=== PATIENT | male | born 1975 | race American Indian/Alaskan Native ===

== ENCOUNTER 2016-09-18 23:01 | Emergency (ER) | payer SELFPAY ==
[2016-09-19 06:10] VITALS: BP 126/94
--- NOTE | 2016-09-19 08:15 | Emergency Department Report ---
ED General Adult HPI - General Chief complaint: Upper Respiratory Infection Stated complaint: CHEST CONGESTION/NECK PAIN Time Seen by Provider: 09/19/16 08:04 Source: patient Mode of arrival: Ambulatory Limitations: No Limitations - History of Present Illness Initial comments: 41-year-old male with hx of HIV presents to the ED with right-sided neck pain with intermittent numbness and tingling to the right arm from hx of herniated disc. Patient also states he is having upper respiratory infection symptoms such as sinus congestion, sinus pressure, cough, sore throat. denies fever, cp, sob, abdominal pain. states taking otc medication with minor relief. - Related Data Previous Rx's Medication Instructions Recorded Last Taken Type ALBUTEROL Inhaler [ProAir HFA 2 puff IH QID PRN #1 inhalation 09/19/16 Unknown Rx Inhaler] Prednisone [predniSONE 5 mg (6-Day 5 mg PO .TAPER #1 tab.ds.pk 09/19/16 Unknown Rx Pack, 21 Tabs)] Sulfamethoxazole/Trimethoprim 1 each PO BID #14 tablet 09/19/16 Unknown Rx [Bactrim DS TAB] methOCARBAMOL [Robaxin TAB] 500 mg PO Q6H PRN #14 tablet 09/19/16 Unknown Rx traMADol [Ultram 50 MG tab] 50 mg PO Q6HR PRN #14 tablet 09/19/16 Unknown Rx Allergies Allergy/AdvReac Type Severity Reaction Status Date / Time ibuprofen [From Motrin] Allergy Hives Verified 09/18/16 23:22 ED Review of Systems ROS: Stated complaint: CHEST CONGESTION/NECK PAIN Other details as noted in HPI Constitutional: denies: chills, fever Eyes: denies: eye pain, eye discharge, vision change ENT: throat pain, congestion. denies: ear pain Respiratory: cough. denies: shortness of breath, wheezing Cardiovascular: denies: chest pain, palpitations Endocrine: no symptoms reported Gastrointestinal: denies: abdominal pain, nausea, diarrhea Genitourinary: denies: urgency, dysuria Musculoskeletal: myalgia. denies: back pain, joint swelling, arthralgia Skin: denies: rash, lesions Neurological: denies: headache, weakness, paresthesias Psychiatric: denies: anxiety, depression Hematological/Lymphatic: denies: easy bleeding, easy bruising ED Past Medical Hx - Past Medical History Previous Medical History?: No - Surgical History Past Surgical History?: No - Social History Smoking Status: Current Every Day Smoker Substance Use Type: Alcohol - Medications Home Medications: Home Medications Medication Instructions Recorded Confirmed Last Taken Type ALBUTEROL Inhaler [ProAir HFA 2 puff IH QID PRN #1 inhalation 09/19/16 Unknown Rx Inhaler] Prednisone [predniSONE 5 mg (6-Day 5 mg PO .TAPER #1 tab.ds.pk 09/19/16 Unknown Rx Pack, 21 Tabs)] Sulfamethoxazole/Trimethoprim 1 each PO BID #14 tablet 09/19/16 Unknown Rx [Bactrim DS TAB] methOCARBAMOL [Robaxin TAB] 500 mg PO Q6H PRN #14 tablet 09/19/16 Unknown Rx traMADol [Ultram 50 MG tab] 50 mg PO Q6HR PRN #14 tablet 09/19/16 Unknown Rx ED Physical Exam - General Limitations: No Limitations General appearance: alert, in no apparent distress - Head Head exam: Present: atraumatic, normocephalic - Eye Eye exam: Present: normal appearance - ENT ENT exam: Present: normal orophraynx, mucous membranes moist, TM's normal bilaterally, normal external ear exam - Neck Neck exam: Present: normal inspection, tenderness (right sided paraspinal tenderness. negative kernig, brudzinski,.) - Respiratory Respiratory exam: Present: normal lung sounds bilaterally. Absent: respiratory distress - Cardiovascular Cardiovascular Exam: Present: regular rate, normal rhythm. Absent: systolic murmur, diastolic murmur, rubs, gallop - GI/Abdominal GI/Abdominal exam: Present: soft, normal bowel sounds - Rectal Rectal exam: Present: deferred - Extremities Exam Extremities exam: Present: normal inspection - Back Exam Back exam: Present: normal inspection - Neurological Exam Neurological exam: Present: alert, oriented X3 - Psychiatric Psychiatric exam: Present: normal affect, normal mood - Skin Skin exam: Present: warm, dry, intact, normal color. Absent: rash ED Course Vital Signs 09/18/16 09/19/16 23:24 06:09 Temperature 98.8 F 98.2 F Pulse Rate 96 H 87 Respiratory 18 18 Rate Blood Pressure 140/99 Blood Pressure 126/94 [Right] O2 Sat by Pulse 99 99 Oximetry ED Medical Decision Making - Medical Decision Making Patient is resting comfortably at this time. Right-sided neck pain is related to his history of herniated disc that he normally gets numbness and tingling with. We'll treat with Bactrim history of HIV and currently not following up with HIV clinic. VSS and NAD at this time. Critical care attestation.: If time is entered above; I have spent that time in minutes in the direct care of this critically ill patient, excluding procedure time. ED Disposition Clinical Impression: Acute URI, Neck pain on right side Disposition: DISCHARGED TO HOME OR SELFCARE Is pt being admited?: No Does the pt Need Aspirin: No Condition: Good Instructions: Upper Respiratory Infection (ED) Additional Instructions: take medication as prescribed. return to ED if fever develops or symptoms worsen. Prescriptions: ALBUTEROL Inhaler [ProAir HFA Inhaler] 2 puff IH QID PRN #1 inhalation PRN Reason: Shortness Of Breath methOCARBAMOL [Robaxin TAB] 500 mg PO Q6H PRN #14 tablet PRN Reason: Pain Prednisone [predniSONE 5 mg (6-Day Pack, 21 Tabs)] 5 mg PO .TAPER #1 tab.ds.pk Sulfamethoxazole/Trimethoprim [Bactrim DS TAB] 1 each PO BID #14 tablet traMADol [Ultram 50 MG tab] 50 mg PO Q6HR PRN #14 tablet PRN Reason: Pain Referrals: PRIMARY CARE,MD [Primary Care Provider] - 3-5 Days Forms: Work/School Release Form(ED) Time of Disposition: 08:14
[2016-09-19] MEDS ORDERED: TYLENOL ONE (08:27)
[2016-09-19] MEDS: TYLENOL PO ONE (08:39)
== END 2016-09-19 08:20 | disposition home or self-care (01) ==
LOC: ED 23:01
DX: J06.9 Acute upper respiratory infection, unspecified (principal); M54.2 Cervicalgia; F17.200 Nicotine dependence, unspecified, uncomplicated; Z88.6 Allergy status to analgesic agent
CPT/HCPCS: 99283

== ENCOUNTER 2017-05-01 02:38 | Inpatient (IN) | payer OTHER ==
[2017-05-01] MEDS ORDERED: MORPHINE IV ONE (03:25)
[2017-05-01] MEDS ORDERED: ZOFRAN IV ONE (03:25)
--- NOTE | 2017-05-01 03:31 | Emergency Department Report ---
HPI - General Chief Complaint: Chest Pain Time Seen by Provider: 05/01/17 03:10 - HPI HPI: Room 26 The patient is a 41-year-old male presented with a chief complaint of chest pain. Patient states for the past 6 hours has had constant diffuse chest pain. Patient describes pain as sharp and burning in nature and associated with shortness of breath. Patient does admit to a pleuritic component. Patient denies nausea/vomiting or diaphoresis. The patient gives his pain is scored 10/ 10. The patient states she's never had a stress test or cardiac catheterization Location: Chest Duration: Hours Quality: Sharp/Burning Severity: 10/10 Modifying factors: [see above] Context: [see above] Mode of transportation: Unknown ED Past Medical Hx - Past Medical History Previous Medical History?: No - Surgical History Past Surgical History?: No - Family History Family history: no significant - Social History Smoking Status: Current Every Day Smoker (1 pack per day) Substance Use Type: Alcohol (moderate), Marijuana - Medications Home Medications: Home Medications Medication Instructions Recorded Confirmed Last Taken Type ALBUTEROL Inhaler [ProAir HFA 2 puff IH QID PRN #1 inhalation 09/19/16 Unknown Rx Inhaler] Prednisone [predniSONE 5 mg (6-Day 5 mg PO .TAPER #1 tab.ds.pk 09/19/16 Unknown Rx Pack, 21 Tabs)] Sulfamethoxazole/Trimethoprim 1 each PO BID #14 tablet 09/19/16 Unknown Rx [Bactrim DS TAB] methOCARBAMOL [Robaxin TAB] 500 mg PO Q6H PRN #14 tablet 09/19/16 Unknown Rx traMADol [Ultram 50 MG tab] 50 mg PO Q6HR PRN #14 tablet 09/19/16 Unknown Rx ED Review of Systems ROS: Stated complaint: CHEST PAIN Other details as noted in HPI Comment: All other systems reviewed and negative Constitutional: denies: chills, diaphoresis, fever Eyes: denies: eye pain, eye discharge, vision change Respiratory: shortness of breath, other (pleurisy) Cardiovascular: chest pain Endocrine: no symptoms reported Gastrointestinal: denies: abdominal pain, nausea, diarrhea Genitourinary: denies: urgency, dysuria Musculoskeletal: denies: back pain, joint swelling, arthralgia Skin: denies: rash, lesions Neurological: denies: headache, weakness, paresthesias Psychiatric: denies: anxiety, depression Hematological/Lymphatic: denies: easy bleeding, easy bruising Physical Exam - Physical Exam Vital Signs: Vital Signs 05/01/17 02:55 Temperature 97.5 F L Pulse Rate 78 Respiratory 16 Rate Blood Pressure 141/101 O2 Sat by Pulse 98 Oximetry Physical Exam: GENERAL: The patient is well-developed well-nourished male lying on a stretcher. In mild discomfort. [] HEENT: Normocephalic. Atraumatic. Extraocular motions are intact. Patient has moist mucous membranes. NECK: Supple. Trachea midline CHEST/LUNGS: Breath sounds equal bilaterally HEART/CARDIOVASCULAR: Regular. There is no tachycardia. There is no gallop rub or murmur. ABDOMEN: Abdomen is soft, nontender. Patient has normal bowel sounds. There is no abdominal distention. SKIN: There is no rash. There is no edema. There is no diaphoresis. NEURO: The patient is awake, alert, and oriented. The patient is cooperative. The patient has normal speech MUSCULOSKELETAL: There is no evidence of acute injury. ED Course Vital Signs 05/01/17 02:55 Temperature 97.5 F L Pulse Rate 78 Respiratory 16 Rate Blood Pressure 141/101 O2 Sat by Pulse 98 Oximetry - Consultations Consultation #1: 05/01/17 03:01 EKG sent to and discussed with Dr. Laureano- does not represent a STEMI ED Medical Decision Making - Lab Data Result diagrams: 05/01/17 03:34 05/01/17 03:34 Laboratory Tests 05/01/17 05/01/17 05/01/17 03:34 03:34 03:34 WBC 8.6 RBC 4.65 Hgb 15.5 H Hct 44.7 MCV 96 H MCH 33 H MCHC 35 H RDW 14.1 Plt Count 270 Lymph % (Auto) 18.5 Angelina % (Auto) 6.8 Eos % (Auto) 0.3 Baso % (Auto) 0.3 Lymph # 1.6 Angelina # 0.6 Eos # 0.0 Baso # 0.0 Seg Neutrophils % 74.1 H Seg Neutrophils # 6.4 D-Dimer < 135 Sodium 139 Potassium 4.0 Chloride 97.7 L Carbon Dioxide 30 Anion Gap 15 BUN 22 H Creatinine 1.2 Estimated GFR > 60 BUN/Creatinine Ratio 18 Glucose 101 H Calcium 9.0 Troponin T < 0.010 Plasma/Serum Alcohol 05/01/17 03:34 WBC RBC Hgb Hct MCV MCH MCHC RDW Plt Count Lymph % (Auto) Angelina % (Auto) Eos % (Auto) Baso % (Auto) Lymph # Angelina # Eos # Baso # Seg Neutrophils % Seg Neutrophils # D-Dimer Sodium Potassium Chloride Carbon Dioxide Anion Gap BUN Creatinine Estimated GFR BUN/Creatinine Ratio Glucose Calcium Troponin T Plasma/Serum Alcohol < 0.01 - EKG Data -: EKG Interpreted by Me EKG shows normal: sinus rhythm Rate: normal - EKG Data When compared to previous EKG there are: previous EKG unavailable Interpretation: nonspecific ST-T wave ramon (ST elevation in leads 1, 2, V2, V3, V4, V5 without reciprocal changes) - Radiology Data Radiology results: image reviewed (chest x-ray) interpreted by me: Chest x-ray-no focal infiltrates, no pneumothorax - Differential Diagnosis ACS, GERD, PE, pericarditis, pneumonia Critical care attestation.: If time is entered above; I have spent that time in minutes in the direct care of this critically ill patient, excluding procedure time. ED Disposition Clinical Impression: Chest pain Disposition: DC-09 OP ADMIT IP TO THIS HOSP Is pt being admited?: Yes Does the pt Need Aspirin: Yes Condition: Fair Instructions: Chest Pain (ED) Time of Disposition: 04:37 (hospitalist paged)
[2017-05-01 04:05] LABS: Basophils % (Auto) 0.3 % (0.0-1.8); Eosinophils % (Auto) 0.3 % (0.0-4.3); Hematocrit 44.7 % (35.5-45.6); Hemoglobin 15.5 gm/dl (11.8-15.2); Mean Corpuscular HGB Conc 35 % (32-34); Mean Corpuscular Hemoglobin 33 pg (28-32); Mean Corpuscular Volume 96 fl (84-94); Platelet Count 270 K/mm3 (140-440); Red Blood Count 4.65 M/mm3 (3.65-5.03); Red Cell Distribution Width 14.1 % (13.2-15.2); White Blood Count 8.6 K/mm3 (4.5-11.0)
[2017-05-01 04:26] LABS: Anion Gap 15 mmol/L; BUN/Creatinine Ratio 18; Blood Urea Nitrogen 22 mg/dL (9-20); Carbon Dioxide 30 mmol/L (22-30); Chloride 97.7 mmol/L (98-107); Glucose 101 mg/dL (75-100); Sodium 139 mmol/L (137-145)
[2017-05-01] MEDS ORDERED: PLAVIX PO ONE (04:38)
--- NOTE | 2017-05-01 07:07 | XRay Report ---
Single view chest: History: Chest pain. Findings: Borderline cardiomegaly. Trachea is midline. No consolidation, pneumothorax or pleural effusion. Impression: No acute cardiopulmonary findings.
[2017-05-01] MEDS: MORPHINE IV PRN ×3 (08:06→19:45)
[2017-05-01] MEDS ORDERED: TYLENOL PO PRN (08:11)
[2017-05-01] MEDS ORDERED: DULCOLAX PR PRN (08:11)
--- NOTE | 2017-05-01 08:11 | History and Physical Report ---
<BLANKA SIMENTAL - Last Filed: 05/01/17 15:08> History of Present Illness Date of examination: 05/01/17 Date of admission: 05/01/2017 Chief complaint: chest pain History of present illness: Patient is a 49 years old [place] male with past medical history of HIV, who presented to the ED complaining of Midsternal chest pain. He states that the pain began this morning and consisted of a sharp pain. The pain was located over his Midsternal area somewhat near his shoulder; non radiating. The onset of pain came while the patient was at work. He did not sit and rest during the pain, but continued to do his job. He noticed the pain as he was pulling something on his car. The pain is a dull, preceded by a short interval of a sharp pain. The sharp pain lasted around 1 minute. The patient did experience some tingling and numbness in his right arm and leg after the pain ceased.He continued to have several episodes of the pain throughout the morning, so he decided to come to the ED around 01:00 am. The painful episodes did not increase in intensity or severity during this time. At the ED the patient was given nitroglycerin, ASA and morphine which he claims helped alleviate the pain somewhat.The patient currently rated his pain a score of 10/10. He experienced shortness of breath, nausea, and diaphoresis during these episodes of pain. He denies vomiting. Patient does admit pleurisy but denies any recent is flights or long car trips. He has never had chest pain in the past. Past History Past Medical History: HIV/AIDS Past Surgical History: No surgical history Social history: no significant social history Family history: hypertension, stroke Medications and Allergies Allergies Allergy/AdvReac Type Severity Reaction Status Date / Time ibuprofen [From Motrin] Allergy Hives Verified 09/18/16 23:22 Home Medications Medication Instructions Recorded Confirmed Last Taken Type No Known Home Medications [No 05/01/17 05/01/17 Unknown History Reported Home Medications] Active Meds: Active Medications Morphine Sulfate (Morphine) 2 mg IV Q4H PRN PRN Reason: Pain, Moderate (4-6) Last Admin: 05/01/17 08:06 Dose: 2 mg Review of Systems Constitutional: no weight loss, no weight gain, no fever, no chills Ears, nose, mouth and throat: no ear discharge, no tinnitis, no decreased hearing, no nose pain, no nasal congestion, no nasal discharge Cardiovascular: chest pain, shortness of breath, no rapid/irregular heart beat, no edema, no syncope, no lightheadedness Respiratory: no cough with sputum, no excessive sputum (with wheels) Gastrointestinal: no nausea, no vomiting, no diarrhea, no constipation, no change in bowel habits Genitourinary Male: no flank pain, no discharge, no urinary frequency, no urinary hesitancy, no nocturia Musculoskeletal: no neck pain, no shooting arm pain, no arm numbness/tingling Integumentary: no pruritis, no redness, no sores, no wounds Neurological: no paralysis, no weakness, no parathesias, no numbness, no tingling Psychiatric: no sleep disturbances, no insomnia, no hypersomnia, no change in appetite Endocrine: no heat intolerance, no polyphagia, no excessive thirst, no polydipsia Hematologic/Lymphatic: no easy bruising, no easy bleeding Allergic/Immunologic: no urticaria, no allergic rhinitis Exam - Constitutional Vitals: Temp Pulse Resp BP Pulse Ox 97.5 F L 65 9 L 108/74 100 05/01/17 02:55 05/01/17 07:00 05/01/17 07:00 05/01/17 07:00 05/01/17 05:35 General appearance: Present: no acute distress - EENT Eyes: Present: PERRL ENT: hearing intact - Neck Neck: Present: supple - Respiratory Respiratory effort: normal Respiratory: bilateral: CTA - Cardiovascular Rhythm: regular Heart Sounds: Present: S1 & S2 - Extremities Extremities: no ischemia - Abdominal General gastrointestinal: Present: soft, non-tender Male genitourinary: Present: deferred - Rectal Rectal Exam: deferred - Integumentary Integumentary: Present: clear, warm, dry - Musculoskeletal Musculoskeletal: strength equal bilaterally - Psychiatric Psychiatric: appropriate mood/affect - Neurologic Neurologic: CNII-XII intact - Allied Health Allied health notes reviewed: nursing Results - Labs CBC & Chem 7: 05/01/17 03:34 05/01/17 03:34 Labs: Laboratory Last Values WBC 8.6 K/mm3 (4.5-11.0) 05/01/17 03:34 RBC 4.65 M/mm3 (3.65-5.03) 05/01/17 03:34 Hgb 15.5 gm/dl (11.8-15.2) H 05/01/17 03:34 Hct 44.7 % (35.5-45.6) 05/01/17 03:34 MCV 96 fl (84-94) H 05/01/17 03:34 MCH 33 pg (28-32) H 05/01/17 03:34 MCHC 35 % (32-34) H 05/01/17 03:34 RDW 14.1 % (13.2-15.2) 05/01/17 03:34 Plt Count 270 K/mm3 (140-440) 05/01/17 03:34 Lymph % (Auto) 18.5 % (13.4-35.0) 05/01/17 03:34 Hopkins % (Auto) 6.8 % (0.0-7.3) 05/01/17 03:34 Eos % (Auto) 0.3 % (0.0-4.3) 05/01/17 03:34 Baso % (Auto) 0.3 % (0.0-1.8) 05/01/17 03:34 Lymph # 1.6 K/mm3 (1.2-5.4) 05/01/17 03:34 Hopkins # 0.6 K/mm3 (0.0-0.8) 05/01/17 03:34 Eos # 0.0 K/mm3 (0.0-0.4) 05/01/17 03:34 Baso # 0.0 K/mm3 (0.0-0.1) 05/01/17 03:34 Seg Neutrophils % 74.1 % (40.0-70.0) H 05/01/17 03:34 Seg Neutrophils # 6.4 K/mm3 (1.8-7.7) 05/01/17 03:34 D-Dimer < 135 ng/mlDDU (0-234) 05/01/17 03:34 Sodium 139 mmol/L (137-145) 05/01/17 03:34 Potassium 4.0 mmol/L (3.6-5.0) 05/01/17 03:34 Chloride 97.7 mmol/L (98-107) L 05/01/17 03:34 Carbon Dioxide 30 mmol/L (22-30) 05/01/17 03:34 Anion Gap 15 mmol/L 05/01/17 03:34 BUN 22 mg/dL (9-20) H 05/01/17 03:34 Creatinine 1.2 mg/dL (0.8-1.5) 05/01/17 03:34 Estimated GFR > 60 ml/min 05/01/17 03:34 BUN/Creatinine Ratio 18 % 05/01/17 03:34 Glucose 101 mg/dL (75-100) H 05/01/17 03:34 Calcium 9.0 mg/dL (8.4-10.2) 05/01/17 03:34 Troponin T < 0.010 ng/mL (0.00-0.029) 05/01/17 06:07 Plasma/Serum Alcohol < 0.01 gm% (0-0.07) 05/01/17 03:34 Assessment and Plan Assessment and plan: Patient is a 49 years old [place] male with past medical history of HIV, who presented to the ED complaining of Midsternal chest pain. He states that the pain began this morning and consisted of a sharp pain. The pain was located over his Midsternal area somewhat near his shoulder; non radiating. The onset of pain came while the patient was at work. Chest x-ray-no focal infiltrates, no pneumothorax. Cardiac enzyme negative and EKG normal sinus rhythm. ASSESSMENT/PLAN Chest Pain We will admit to telemetry floor. EKG normal sinus rate [address] elevation or T-wave inversion. Negative cardiac enzyme X3 Start on aspirin Nitroglycerin when necessary Morphine ordered for pain Stress test ordered. Cardiology evaluation HIV Unknown CD4 count and we will obtain T lymphocytes Follow up with ID as outpatient Dehydration Started on IV fluid DVT prophylaxis Lovenox Advance Directives: Yes VTE prophylaxis?: Chemical Contraindication Mechanical VTE Prophylaxis: Treatment Not Indicated Plan of care discussed with patient/family: Yes <KINGS VELA - Last Filed: 05/01/17 16:15> History of Present Illness Date of admission: 05/01/17 08:13 Medications and Allergies Active Meds: Active Medications Acetaminophen (Tylenol) 650 mg PO Q4H PRN PRN Reason: Pain MILD(1-3)/Fever >100.5/LIU Bisacodyl (Dulcolax) 10 mg ME QDAY PRN PRN Reason: Constipation unrelieved by MOM Influenza Virus Vaccine Quadrival (Fluarix Quad [id number](36 Mos+)) 0.5 ml IM .ONCE ONE Stop: 05/02/17 12:01 Morphine Sulfate (Morphine) 2 mg IV Q4H PRN PRN Reason: Pain, Moderate (4-6) Last Admin: 05/01/17 11:45 Dose: 2 mg Nitroglycerin (Nitrostat) 0.4 mg SL .Q5MIN PRN PRN Reason: Chest Pain Ondansetron HCl (Zofran) 4 mg IM Q4H PRN PRN Reason: Nausea And Vomiting Exam - Constitutional Vitals: Temp Pulse Resp BP Pulse Ox 97.5 F L 54 L 13 125/92 100 05/01/17 02:55 05/01/17 13:22 05/01/17 12:11 05/01/17 13:22 05/01/17 13:22 Results - Labs CBC & Chem 7: 05/01/17 03:34 05/01/17 03:34 Labs: Laboratory Last Values WBC 8.6 K/mm3 (4.5-11.0) 05/01/17 03:34 RBC 4.65 M/mm3 (3.65-5.03) 05/01/17 03:34 Hgb 15.5 gm/dl (11.8-15.2) H 05/01/17 03:34 Hct 44.7 % (35.5-45.6) 05/01/17 03:34 MCV 96 fl (84-94) H 05/01/17 03:34 MCH 33 pg (28-32) H 05/01/17 03:34 MCHC 35 % (32-34) H 05/01/17 03:34 RDW 14.1 % (13.2-15.2) 05/01/17 03:34 Plt Count 270 K/mm3 (140-440) 05/01/17 03:34 Lymph % (Auto) 18.5 % (13.4-35.0) 05/01/17 03:34 Hopkins % (Auto) 6.8 % (0.0-7.3) 05/01/17 03:34 Eos % (Auto) 0.3 % (0.0-4.3) 05/01/17 03:34 Baso % (Auto) 0.3 % (0.0-1.8) 05/01/17 03:34 Lymph # 1.6 K/mm3 (1.2-5.4) 05/01/17 03:34 Hopkins # 0.6 K/mm3 (0.0-0.8) 05/01/17 03:34 Eos # 0.0 K/mm3 (0.0-0.4) 05/01/17 03:34 Baso # 0.0 K/mm3 (0.0-0.1) 05/01/17 03:34 Seg Neutrophils % 74.1 % (40.0-70.0) H 05/01/17 03:34 Seg Neutrophils # 6.4 K/mm3 (1.8-7.7) 05/01/17 03:34 D-Dimer < 135 ng/mlDDU (0-234) 05/01/17 03:34 Sodium 139 mmol/L (137-145) 05/01/17 03:34 Potassium 4.0 mmol/L (3.6-5.0) 05/01/17 03:34 Chloride 97.7 mmol/L (98-107) L 05/01/17 03:34 Carbon Dioxide 30 mmol/L (22-30) 05/01/17 03:34 Anion Gap 15 mmol/L 05/01/17 03:34 BUN 22 mg/dL (9-20) H 05/01/17 03:34 Creatinine 1.2 mg/dL (0.8-1.5) 05/01/17 03:34 Estimated GFR > 60 ml/min 05/01/17 03:34 BUN/Creatinine Ratio 18 % 05/01/17 03:34 Glucose 101 mg/dL (75-100) H 05/01/17 03:34 Calcium 9.0 mg/dL (8.4-10.2) 05/01/17 03:34 Troponin T < 0.010 ng/mL (0.00-0.029) 05/01/17 Unknown Plasma/Serum Alcohol < 0.01 gm% (0-0.07) 05/01/17 03:34 Assessment and Plan Assessment and plan: I saw and evaluated the patient. I agree with the findings and the plan of care as documented in the Nurse Practitioner's~note, with the following corrections and additions. patient reports symptoms started after ingesting an alcoholic mixture at a constitution party , also endosers to tobacco use. Advised against both and he verablized understanding. Pain is reproducible. Likely costochondritis.
[2017-05-01] MEDS ORDERED: NITROSTAT SL PRN (08:16)
[2017-05-01] MEDS ORDERED: ZOFRAN IM PRN (08:17)
[2017-05-02 06:38] LABS: Basophils % (Auto) 0.2 % (0.0-1.8); Eosinophils % (Auto) 0.6 % (0.0-4.3); Hemoglobin 15.8 gm/dl (11.8-15.2); Mean Corpuscular HGB Conc 34 % (32-34); Mean Corpuscular Hemoglobin 33 pg (28-32); Mean Corpuscular Volume 97 fl (84-94); Platelet Count 236 K/mm3 (140-440); Red Blood Count 4.74 M/mm3 (3.65-5.03); Red Cell Distribution Width 14.3 % (13.2-15.2); White Blood Count 7.9 K/mm3 (4.5-11.0)
[2017-05-02 06:54] LABS: Anion Gap 15 mmol/L; BUN/Creatinine Ratio 14; Blood Urea Nitrogen 13 mg/dL (9-20); Calcium 8.8 mg/dL (8.4-10.2); Carbon Dioxide 29 mmol/L (22-30); Glucose 90 mg/dL (75-100); Potassium 4.9 mmol/L (3.6-5.0); Sodium 138 mmol/L (137-145)
[2017-05-02] MEDS: MORPHINE IV PRN (08:23)
[2017-05-02] MEDS ORDERED: LEXISCAN IV ONE ×2 (09:04→09:25)
--- NOTE | 2017-05-02 09:26 | Discharge Summary ---
Providers - Providers Date of Admission: 05/01/17 08:13 Attending physician: KINGS VELA MD 05/01/17 12:16 Consult to Physician [CONS] Routine Consulting Provider: LUISA SORENSEN Reason For Exam: chest pain Place consult to:: yes Notified:: y Phone number called:: yes Primary care physician: [employer] Hospitalization Reason for admission: chest pain Condition: Stable Hospital course: Patient is a 49 years old Nepali male with past medical history of HIV, who presented to the ED complaining of Midsternal chest pain. He states that the pain began this morning and consisted of a sharp pain. The pain was located over his Midsternal area somewhat near his shoulder; non radiating. The onset of pain came while the patient was at work. Chest x-ray-no focal infiltrates, no pneumothorax. Cardiac enzyme negative and EKG normal sinus rhythm. Chest pain on admission was reproducible. Atypical Chest Pain Likely secondary to costochondritis patient did have a small loosely fixed distal anterior defect of mild intensity likely diaphragmatic attenuation artifact. She was provided a prescription of cancer alcohol abuse. Verbalized understanding. HIV Unknown CD4 count Follow up with ID as outpatient Dehydration Patient was hydrated EtOH abuse Tobacco abuse Counseling was provided to the patient alcohol and tobacco abuse patient verbalized understanding. Disposition: DC-01 TO HOME OR SELFCARE Time spent for discharge: 35 mins Core Measure Documentation - Palliative Care Palliative Care/ Comfort Measures: Not Applicable - Core Measures Any of the following diagnoses?: none - VTE Discharge Requirements Deep Vein Thrombosis/Pulmonary Embolism Present on Admission: No Exam - Physical Exam Narrative exam: VITAL SIGNS: Reviewed. GENERAL: The patient appeared well nourished and normally developed. Vital signs as documented. HEAD: No signs of head trauma. EYES: Pupils are equal. Extraocular motions intact. EARS: Hearing grossly intact. MOUTH: Oropharynx is normal. NECK: No adenopathy, no JVD. CHEST: Chest with clear breath sounds bilaterally. No wheezes, rales, or rhonchi. CARDIAC: Regular rate and rhythm. S1 and S2, without murmurs, gallops, or rubs. VASCULAR: No Edema. Peripheral pulses normal and equal in all extremities. ABDOMEN: Soft, without detectable tenderness. No sign of distention. No rebound or guarding, and no masses palpated. Bowel Sounds normal. MUSCULOSKELETAL: Good range of motion of all major joints. Extremities without clubbing, cyanosis or edema. NEUROLOGIC EXAM: Alert and oriented x 3. No focal sensory or strength deficits. Speech normal. Follows commands. PSYCHIATRIC: Mood normal. SKIN: No rash or lesions. - Constitutional Vitals: Temp Pulse Resp BP Pulse Ox 98.4 F 62 20 124/86 97 05/02/17 04:15 05/02/17 04:15 05/02/17 08:23 05/02/17 04:15 05/02/17 04:15 Plan Activity: advance as tolerated, fall precautions Diet: low fat Special Instructions: smoking cessation Additional Instructions: Recommend follow up at [facility] Follow up with: [facility] [Provider Group] - 7 Days PRIMARY CARE, [Primary Care Provider] - 3-5 Days Forms: Work/School Release Form(ED), Work/School Release Form Prescriptions: traMADol [Ultram] 50 mg PO Q6HR PRN #14 tablet PRN Reason: Pain
[2017-05-02 11:32] VITALS: BP 124/78
[2017-05-02] MEDS ORDERED: Fluarix Quad 2017-2018(36 MOS+) IM ONE (12:00)
--- NOTE | 2017-05-03 11:24 | Treadmill Report ---
DATE OF SERVICE: 05/02/2017 THALLIUM STRESS TEST Left ventricular and ventricular chamber size is within normal shape. Perfusion study demonstrates a small fixed basal inferior defect of mild intensity, minimal to no significant reversibility noted. Gated analysis demonstrates normal left ventricular systolic function, ejection fraction 62%. CONCLUSION: Small, mostly fixed basal inferior defect of mild intensity likely diaphragmatic attenuation artifact. Recommend clinical correlation due to suboptimal nature of the study. [facility]# [id number] [place]/NTS
== END 2017-05-02 15:13 | disposition home or self-care (01) | DRG 205 ==
LOC: ED 02:38 → 4A 08:13
PROVIDERS: ADMIT Internal Medicine; ATTEND Internal Medicine
PROC: 3E0234Z Introduction of Serum, Toxoid and Vaccine into Muscle, Percutaneous Approach (ICD-10-PCS; principal; 2017-05-02)
DX: M94.0 Chondrocostal junction syndrome [Tietze] (principal); B20 Human immunodeficiency virus [HIV] disease; E86.0 Dehydration; F12.90 Cannabis use, unspecified, uncomplicated; F10.10 Alcohol abuse, uncomplicated; F17.200 Nicotine dependence, unspecified, uncomplicated; Z71.41 Alcohol abuse counseling and surveillance of alcoholic; Z71.6 Tobacco abuse counseling; Z23 Encounter for immunization; Z82.49 Family history of ischemic heart disease and other diseases of the circulatory system; Z82.3 Family history of stroke
CPT/HCPCS: 36415; 71010; 78452; 80048; 80320; 82024; 82550; 84484; 85025; 85379; 90686; 93005; 93010; 93017; 96374; 96375; 99285; A9502; G0480; J2270; J2405; J2785